=== PATIENT | male | born 1945 | race Caucasian/White ===

== ENCOUNTER 2018-06-11 23:18 | Observation (INO) ==
--- NOTE | 2018-06-11 23:44 | Emergency Department Note ---
Disposition Clinical Impression: Weakness generalized, Lethargy Disposition: Admitted As Inpatient Condition: Fair Forms: ED Satisfaction Letter Time of Disposition: 01:32 General Adult HPI - General Chief complaint: ED Altered Mental Status Stated complaint: CONFUSION Time Seen by Provider: 06/11/18 23:34 Source: patient, family, EMS Mode of arrival: EMS Limitations: physical limitation Nursing Notes Reviewed: Yes Vital Signs Reviewed: Yes - History of Present Illness Pt Subjective Complaint: Weakness Onset (ago): day(s) (3 days) Location: other (General I) Pain Severity: severe Pain Scale: 0 Consistency: constant, Worsening Improves with: nothing Worsens with: nothing Associated symptoms: Reports: confusion Treatments Prior to Arrival: none - Related Data Home Medications Medication Instructions Recorded Confirmed Atenolol [Tenormin] 25 mg PO DAILY 06/12/18 06/12/18 Baclofen [Lioresal] 10 mg PO TID 06/12/18 06/12/18 Carbidopa/Levodopa [Carbidopa-Levo 1 each PO HS 06/12/18 06/12/18 ER 25-100 Tab] Carbidopa/Levodopa [Carbidopa-Levo 1 each PO TID 06/12/18 06/12/18 ER 25-100 Tab] Cholecalciferol (Vitamin D3) 2,000 unit PO DAILY 06/12/18 06/12/18 [Vitamin D] Finasteride [Proscar] 5 mg PO DAILY 06/12/18 06/12/18 Gabapentin [Neurontin] 600 mg PO QID PRN 06/12/18 06/12/18 Lisinopril [Zestril] 20 mg PO DAILY 06/12/18 06/12/18 Meloxicam [Mobic] 7.5 mg PO BID 06/12/18 06/12/18 Omeprazole [PriLOSEC] 20 mg PO BIDAC 06/12/18 06/12/18 Primidone [Mysoline] 50 mg PO BID 06/12/18 06/12/18 Propranolol HCl 40 mg PO TID 06/12/18 06/12/18 Tamsulosin HCl [Flomax] 0.4 mg PO DAILY 06/12/18 06/12/18 Trazodone HCl 100 mg PO HS PRN 06/12/18 06/12/18 Allergies Allergy/AdvReac Type Severity Reaction Status Date / Time No Known Allergies Allergy Verified 06/11/18 23:22 All systems ED: reviewed and negative except as stated. Constitutional: Denies: fever, chills ENT ED: Denies: ear pain, throat pain, congestion Cardiovascular: Denies: chest pain, palpitations Respiratory: Denies: cough, dyspnea Gastrointestinal: Denies: abdominal pain, nausea, vomiting, diarrhea Integumentary: Denies: rash Neurological: Reports: weakness (Generalized). Denies: headache Past Medical History - Past Medical History Attestation: Yes The following information was validated with the patient. Source: patient, old records reviewed, obtained from family, nursing notes reviewed Medical history: Reports: arthritis, GERD, hypertension, other Surgical history: Reports: cholecystectomy Psychiatric history: Reports: no psych history - Social History Smoking Status: Never smoker Smokeless Tobacco Status: No Alcohol use: Reports: none Drug use: Reports: none Physical Exam - General Limitations: no limitations General appearance: alert, other (Patient is lying on the bed with his eyes closed. Very slow to answer questions.) - Head Head exam: atraumatic, normocephalic, normal inspection - Eye Eye exam: Present: normal appearance, PERRL, EOMI. Absent: scleral icterus, conjunctival injection - ENT ENT exam: normal exam, normal oropharynx, mucous membranes moist, TM's normal bilaterally, normal external ear exam - Neck Neck exam: Present: normal inspection, full ROM. Absent: meningismus, lymphadenopathy - Chest Chest inspection: Present: normal inspection, symmetric chest wall rise. Absent: tenderness - Respiratory Respiratory exam: Present: normal lung sounds bilaterally. Absent: respiratory distress, wheezes - Cardiovascular Cardiovascular exam: Present: regular rate, normal rhythm, normal heart sounds - Abdominal Exam Abdominal exam: Present: soft, Non-Tender, normal bowel sounds - Extremities Exam Extremities exam: Present: normal inspection. Absent: tenderness, pedal edema - Neurological Exam Neurological exam: Present: alert, CN II-XII intact. Absent: motor sensory deficit - Psychiatric Psychiatric exam: Present: normal affect, normal mood - Skin Skin exam: Present: warm, dry. Absent: rash Course Course Narrative: Patient presents with general weakness and confusion has been progressively worsening for the past 3 days. He is not describing any other focal complaints. Family has not noted any other focal complaints. My physical exam is basically unremarkable except that the patient is slow to answer questions and sometimes I think he does not understand the question. Otherwise is no focal neurologic findings, no indications of sepsis on exam, really nothing that explains the presentation. We will have to get a lab workup going. Disposition will be based on diagnostic results and reevaluation. - Reevaluation(s) Reevaluation #1: Labs and imaging studies all came back normal. Patient is feeling on normal conversation and following commands appropriately but he is sluggish in his responses and sluggish in his actions. He did get up and ambulate with a walker slowly but normally he does not use a walker at home. Neurologically there are no focal findings. I suspect that this is probably medication related. I am not finding any other etiology. He is not back at his baseline at this point so I think he needs to be admitted to the hospital for further evaluation and sort this out. I spoke to the hospitalist who accepted the patient for admission. The patient did have some episodes on the monitor that look like V. tach but I was standing right at the bedside talking to the patient when it happened and he actually had his hands on the lead and his Parkinson tremor was moving up and down and this would cause the abnormalities on the monitor. Otherwise there was no dysrhythmias seen during the entire ER stay. Time: 01:30 - Consultations Consultation #1: Dr. Helm, hospitalist - I discussed this with the hospitalist and he accepted patient for admission to the hospital. Time: 01:25 Vital Signs Temperature 97.9 F 06/11/18 23:22 Pulse Rate 63 06/11/18 23:22 Respiratory Rate 20 06/11/18 23:22 Blood Pressure 124/89 06/11/18 23:22 O2 Sat by Pulse Oximetry 96 06/11/18 23:22 Temperature 97.9 F 06/11/18 23:22 Pulse Rate 62 06/12/18 01:04 Respiratory Rate 20 06/12/18 00:42 Blood Pressure 102/68 06/12/18 01:04 O2 Sat by Pulse Oximetry 96 06/12/18 00:42 Oxygen Delivery Oxygen Delivery Room Air Medical Decision Making - Medical Records Medical records reviewed: Yes I reviewed the patient's medical records. - Lab Data Lab results reviewed: Yes I reviewed the patient's lab results. Result diagrams: 06/12/18 00:10 06/12/18 00:10 Lab Results 0206/11/18 06/12/18 Range/Units 23:39 23:55 00:06 WBC (4.3-11.1) K/mcL RBC (4.19-5.50) M/mcL Hgb (12.9-16.9) g/dL Hct (37.5-50.1) % MCV (83.0-100.0) fL MCH (28.0-33.3) pg MCHC (31.6-35.5) g/dL RDW (11.5-14.5) % Plt Count (140-400) K/mcL MPV (9.4-12.4) fL Immature Gran % (0-4) % Seg Neutrophils % % Lymphocytes % % Monocytes % % Eosinophils % % Basophils % % Neutrophils # (1.6-8.9) K/mcL Lymphocytes # (0.6-4.6) K/mcL Monocytes # (0.0-1.3) K/mcL Eosinophils # (0.0-0.6) K/mcL Basophils # (0.0-0.2) K/mcL Sample Site L Brach ABG pH 7.38 (7.32-7.45) pH Units ABG pCO2 49 H (35-45) mmHg ABG pO2 73 L (85-104) mmHg ABG HCO3 29 H (21-27) mEq/L ABG Total CO2 31 H (20-26) mEq/L ABG O2 Saturation 94 L (95-98) % ABG Base Excess 3 (-2 to 3) mEq/L Saad Test N/A O2 Delivery Device Room Air Sodium (136-145) mEq/L Potassium (3.5-5.1) mEq/L Chloride (98-107) mEq/L Carbon Dioxide (23-29) mEq/L BUN (8-23) mg/dL Creatinine (0.70-1.30) mg/dL Est GFR ( Amer) (> 60) Est GFR (Non-Af Amer) (> 60) BUN/Creatinine Ratio (6-26) Glucose (70-105) mg/dL POC Glucose 115 H (70-99) mg/dL Calculated Osmolality (280-300) Calcium (8.6-10.3) mg/dL Total Bilirubin (0.3-1.0) mg/dL Direct Bilirubin (0.0-0.2) mg/dL Indirect Bilirubin (0.0-1.2) mg/dL AST (13-39) Units/L ALT (7-52) Units/L Alkaline Phosphatase (34-104) Units/L Ammonia (16-53) mcmol/L Troponin I (< 0.04) ng/mL B-Natriuretic Peptide (Less than 100) pg/mL Serum Total Protein (6.4-8.9) g/dL Albumin (3.5-5.7) g/dL Globulin (2.4-3.5) g/dL Albumin/Globulin Ratio (1.1-2.2) Urine Color Yellow (Yellow) Urine Clarity Clear (Clear) Urine pH 6.0 (5.0-8.0) pH Units Ur Specific [place] 1.025 (1.010-1.025) Urine Protein Negative (Neg-Trace) mg/dL Urine Glucose (UA) Normal (Normal) mg/dL Urine Ketones Trace H (Negative) mg/dL Urine Blood Negative (Negative) Urine Nitrite Negative (Negative) Urine Bilirubin Small H (Negative) Urine Urobilinogen 2.0 H (Normal) mg/dL Ur Leukocyte Esterase Negative (Negative) Ur Culture Indicated? NO (NO) Ethyl Alcohol (Less than 10) mg/dL 06/12/18 06/12/18 06/12/18 Range/Units 00:10 00:10 00:10 WBC 8.6 (4.3-11.1) K/mcL RBC 4.36 (4.19-5.50) M/mcL Hgb 14.6 (12.9-16.9) g/dL Hct 41.8 (37.5-50.1) % MCV 95.9 (83.0-100.0) fL MCH 33.5 H (28.0-33.3) pg MCHC 34.9 (31.6-35.5) g/dL RDW 11.8 (11.5-14.5) % Plt Count 130 L (140-400) K/mcL MPV 9.5 (9.4-12.4) fL Immature Gran % 0.1 (0-4) % Seg Neutrophils % 75.2 % Lymphocytes % 14.5 % Monocytes % 7.0 % Eosinophils % 2.6 % Basophils % 0.6 % Neutrophils # 6.4 (1.6-8.9) K/mcL Lymphocytes # 1.2 (0.6-4.6) K/mcL Monocytes # 0.6 (0.0-1.3) K/mcL Eosinophils # 0.2 (0.0-0.6) K/mcL Basophils # 0.1 (0.0-0.2) K/mcL Sample Site ABG pH (7.32-7.45) pH Units ABG pCO2 (35-45) mmHg ABG pO2 (85-104) mmHg ABG HCO3 (21-27) mEq/L ABG Total CO2 (20-26) mEq/L ABG O2 Saturation (95-98) % ABG Base Excess (-2 to 3) mEq/L Saad Test O2 Delivery Device Sodium 141 (136-145) mEq/L Potassium 4.1 (3.5-5.1) mEq/L Chloride 104 (98-107) mEq/L Carbon Dioxide 29 (23-29) mEq/L BUN 13 (8-23) mg/dL Creatinine 0.83 (0.70-1.30) mg/dL Est GFR ( Amer) > 60 (> 60) Est GFR (Non-Af Amer) > 60 (> 60) BUN/Creatinine Ratio 16 (6-26) Glucose 120 H (70-105) mg/dL POC Glucose (70-99) mg/dL Calculated Osmolality 293 (280-300) Calcium 9.3 (8.6-10.3) mg/dL Total Bilirubin 0.4 (0.3-1.0) mg/dL Direct Bilirubin 0.1 (0.0-0.2) mg/dL Indirect Bilirubin 0.3 (0.0-1.2) mg/dL AST 10 L (13-39) Units/L ALT 7 (7-52) Units/L Alkaline Phosphatase 57 (34-104) Units/L Ammonia 44 (16-53) mcmol/L Troponin I < 0.03 (< 0.04) ng/mL B-Natriuretic Peptide (Less than 100) pg/mL Serum Total Protein 6.6 (6.4-8.9) g/dL Albumin 4.2 (3.5-5.7) g/dL Globulin 2.4 (2.4-3.5) g/dL Albumin/Globulin Ratio 1.8 (1.1-2.2) Urine Color (Yellow) Urine Clarity (Clear) Urine pH (5.0-8.0) pH Units Ur Specific [place] (1.010-1.025) Urine Protein (Neg-Trace) mg/dL Urine Glucose (UA) (Normal) mg/dL Urine Ketones (Negative) mg/dL Urine Blood (Negative) Urine Nitrite (Negative) Urine Bilirubin (Negative) Urine Urobilinogen (Normal) mg/dL Ur Leukocyte Esterase (Negative) Ur Culture Indicated? (NO) Ethyl Alcohol < 10 (Less than 10) mg/dL 06/12/18 Range/Units 00:10 WBC (4.3-11.1) K/mcL RBC (4.19-5.50) M/mcL Hgb (12.9-16.9) g/dL Hct (37.5-50.1) % MCV (83.0-100.0) fL MCH (28.0-33.3) pg MCHC (31.6-35.5) g/dL RDW (11.5-14.5) % Plt Count (140-400) K/mcL MPV (9.4-12.4) fL Immature Gran % (0-4) % Seg Neutrophils % % Lymphocytes % % Monocytes % % Eosinophils % % Basophils % % Neutrophils # (1.6-8.9) K/mcL Lymphocytes # (0.6-4.6) K/mcL Monocytes # (0.0-1.3) K/mcL Eosinophils # (0.0-0.6) K/mcL Basophils # (0.0-0.2) K/mcL Sample Site ABG pH (7.32-7.45) pH Units ABG pCO2 (35-45) mmHg ABG pO2 (85-104) mmHg ABG HCO3 (21-27) mEq/L ABG Total CO2 (20-26) mEq/L ABG O2 Saturation (95-98) % ABG Base Excess (-2 to 3) mEq/L Saad Test O2 Delivery Device Sodium (136-145) mEq/L Potassium (3.5-5.1) mEq/L Chloride (98-107) mEq/L Carbon Dioxide (23-29) mEq/L BUN (8-23) mg/dL Creatinine (0.70-1.30) mg/dL Est GFR ( Amer) (> 60) Est GFR (Non-Af Amer) (> 60) BUN/Creatinine Ratio (6-26) Glucose (70-105) mg/dL POC Glucose (70-99) mg/dL Calculated Osmolality (280-300) Calcium (8.6-10.3) mg/dL Total Bilirubin (0.3-1.0) mg/dL Direct Bilirubin (0.0-0.2) mg/dL Indirect Bilirubin (0.0-1.2) mg/dL AST (13-39) Units/L ALT (7-52) Units/L Alkaline Phosphatase (34-104) Units/L Ammonia (16-53) mcmol/L Troponin I (< 0.04) ng/mL B-Natriuretic Peptide 73 (Less than 100) pg/mL Serum Total Protein (6.4-8.9) g/dL Albumin (3.5-5.7) g/dL Globulin (2.4-3.5) g/dL Albumin/Globulin Ratio (1.1-2.2) Urine Color (Yellow) Urine Clarity (Clear) Urine pH (5.0-8.0) pH Units Ur Specific [place] (1.010-1.025) Urine Protein (Neg-Trace) mg/dL Urine Glucose (UA) (Normal) mg/dL Urine Ketones (Negative) mg/dL Urine Blood (Negative) Urine Nitrite (Negative) Urine Bilirubin (Negative) Urine Urobilinogen (Normal) mg/dL Ur Leukocyte Esterase (Negative) Ur Culture Indicated? (NO) Ethyl Alcohol (Less than 10) mg/dL - Radiology Data Radiology results reviewed: Yes I reviewed the patient's radiology results. - EKG Data EKG #1 EKG attestation: Yes I reviewed and interpreted this EKG. EKG results narrative: Twelve-lead EKG performed at 20 3:29 PM. Ordered, reviewed and interpreted by ED physician shows sinus rhythm at a rate of 61. Left axis deviation and left anterior hemiblock. Good hour progression across precordium. No obvious acute ischemic changes. Intervals are within normal limits.
[2018-06-12 00:02] LABS: Bilirubin,Urine Small (Negative); Blood,Urine Negative (Negative); Clarity,Urine Clear (Clear); Color,Urine Yellow (Yellow); Glucose,Urine (UA) Normal (Normal); Ketones,Urine Trace mg/dL (Negative); Leukocyte Esterase,Urine Negative (Negative); Nitrite,Urine Negative (Negative); Protein,Urine Negative (Neg-Trace); Specific Gravity,Urine 1.025 (1.010-1.025)
[2018-06-12 00:09] LABS: ABG Base Excess 3 mEq/L (-2 to 3); ABG HCO3 29 mEq/L (21-27); ABG Oxygen Saturation 94 % (95-98); ABG PCO2 49 mmHg (35-45); ABG PH 7.38 pH Units (7.32-7.45); ABG PO2 73 mmHg (85-104); ABG TCO2 31 mEq/L (20-26)
[2018-06-12 00:18] LABS: Basophils # 0.1 K/mcL (0.0-0.2); Basophils % 0.6 %; Eosinophils # 0.2 K/mcL (0.0-0.6); Eosinophils % 2.6 %; Hematocrit 41.8 % (37.5-50.1); Hemoglobin 14.6 g/dL (12.9-16.9); Immature Granulocytes % 0.1 % (0-4); Lymphocytes # 1.2 K/mcL (0.6-4.6); Lymphocytes % 14.5 %; Mean Corpuscular HGB Conc 34.9 g/dL (31.6-35.5); Mean Corpuscular Hemoglobin 33.5 pg (28.0-33.3); Mean Corpuscular Volume 95.9 fL (83.0-100.0); Mean Platelet Volume 9.5 fL (9.4-12.4); Monocytes # 0.6 K/mcL (0.0-1.3); Neutrophils # 6.4 K/mcL (1.6-8.9); Platelet Count 130 K/mcL (140-400); Red Blood Count 4.36 M/mcL (4.19-5.50); Red Cell Distribution Width 11.8 % (11.5-14.5); Segmented Neutrophils % 75.2 %
[2018-06-12 00:38] LABS: Alanine Aminotransferase 7 Units/L (7-52); Albumin 4.2 g/dL (3.5-5.7); Albumin/Globulin Ratio 1.8 (1.1-2.2); Alkaline Phosphatase 57 Units/L (34-104); Aspartate Amino Transferase 10 Units/L (13-39); BUN/Creatinine Ratio 16 (6-26); Bilirubin,Direct 0.1 mg/dL (0.0-0.2); Bilirubin,Indirect 0.3 mg/dL (0.0-1.2); Bilirubin,Total 0.4 mg/dL (0.3-1.0); Blood Urea Nitrogen 13 mg/dL (8-23); Calcium 9.3 mg/dL (8.6-10.3); Carbon Dioxide 29 mEq/L (23-29); Chloride 104 mEq/L (98-107); Ethanol < 10 mg/dL (Less than 10); Globulin 2.4 g/dL (2.4-3.5); Glucose 120 mg/dL (70-105); Osmolality,Calculated 293 (280-300); Potassium 4.1 mEq/L (3.5-5.1); Sodium 141 mEq/L (136-145); Total Protein 6.6 g/dL (6.4-8.9); Troponin I < 0.03 ng/mL (< 0.04); eGFR For Non-African Americans > 60 (> 60)
[2018-06-12] MEDS ORDERED: 0.9 % Sodium Chloride 1,000 ML IVC SCH ×2 (01:45→06:00)
[2018-06-12] MEDS ORDERED: Naloxone 0.4 MG/ML INJ IVP PRN (06:00)
[2018-06-12] MEDS: Carbidopa/Levodopa 25/100 TABLET PO SCH ×3 (11:20→17:09)
[2018-06-12] MEDS: Lisinopril 20 MG TABLET PO SCH (11:23)
--- NOTE | 2018-06-12 14:45 | Internal Med History&Physical ---
Date of Encounter: 06/12/18 Time of Encounter: 14:10 Assessment and Plan (1) Syncope Current visit: Yes Status: Acute Etiology determined. He was placed on telemetry through emergency room. Baseline EKG was unremarkable. Repeat cardiac enzymes were ordered. Qualifiers: Syncope type: unspecified Qualified Code(s): R55 - Syncope and collapse (2) Weakness generalized Current visit: Yes Status: Acute As above (3) Hypertension Current visit: Yes Status: Chronic Continue lisinopril Qualifiers: Hypertension type: essential hypertension Qualified Code(s): I10 - Essential (primary) hypertension (4) Parkinsons disease Current visit: Yes Status: Acute Continue Sinemet Internal Medicine - H&P: HPI Chief complaint: Weakness and lethargy Admitted From: Emergency Dept Plans for Post Hospital Care: Home History of present illness: Mr. Blackwood is a 72 year old male who came to emergency room after he had onset of weakness while sitting in a chair. His reports he had complete loss of consciousness for a few seconds and upon regaining consciousness seemed to be lethargic. There was no seizure activity noted. The loss and regain of consciousness continued repeatedly over the next few hours. The squad was called and he was brought to emergency room and evaluated. He was admitted to [facility] floor for ongoing care needs. He still feels weak but has had no further syncopal or near syncopal episodes. He denies previous similar episodes. He denies pain or dyspnea at the time of the event yesterday. He has not had syncopal or near syncopal episodes since the of his daughter many decades ago. His neurologic history is pertinent for diagnoses of Parkinson's disease and essential tremor. He has not had large distribution strokes or seizures. Past Med Surg Social Fam HX - Past Medical History Medical history: arthritis, GERD, hypertension, other Additional medical history: PARKINSON'S, USES WALKER AND CANE FOR ASSIST, DDD, CHRONIC PAIN ISSUES, RLS, Psychiatric history: no psych history - Past Surgical History Surgical History: cholecystectomy Additional surgical history: RT KNEE SURG 1963 (WEARS KNEE BRACE) - Social History Smoking Status: Never smoker Smokeless Tobacco Status: No Alcohol use: none Drug use: none Internal Medicine - H&P: Meds Baclofen [Lioresal] 10 mg PO TID 06/12/18 [History] Carbidopa/Levodopa 25/100 [Sinemet 25/100] 1 each PO TID 06/12/18 [History] Carbidopa/Levodopa [Carbidopa-Levo ER 25-100 Tab] 1 each PO HS 06/12/18 [History] Cholecalciferol (Vitamin D3) [Vitamin D] 2,000 unit PO DAILY 06/12/18 [History] Finasteride [Proscar] 5 mg PO DAILY 06/12/18 [History] Gabapentin [Neurontin] 600 mg PO QID PRN 06/12/18 [History] Lisinopril [Zestril] 20 mg PO DAILY 06/12/18 [History] Meloxicam [Mobic] 7.5 mg PO BID 06/12/18 [History] Omeprazole [PriLOSEC] 20 mg PO BIDAC 06/12/18 [History] Primidone [Mysoline] 50 mg PO BID 06/12/18 [History] Propranolol HCl 40 mg PO TID 06/12/18 [History] Tamsulosin HCl [Flomax] 0.4 mg PO DAILY 06/12/18 [History] Trazodone HCl 100 mg PO HS PRN 06/12/18 [History] Allergy/AdvReac Type Severity Reaction Status Date / Time No Known Allergies Allergy Verified 06/11/18 23:22 All Systems PM: A 10-system review of systems was performed and is negative for pertinent findings except as documented above in the HPI. Review of systems: Gen.: He states his weight has been stable for the past year Cardiovascular: He has history of hypertension but denies LA heart failure angina DVT or pulmonary embolus Respiratory: He is a lifelong nonsmoker. He denies chronic lung disease does not use home oxygen. He has PERCY and has CPAP but does not use it regularly. GI: He has had cholecystectomy. He denies disorders of his liver or exocrine pancreas : He has BPH and is on Proscar. He denies other kidney bladder prostate disorders. Neurologic: As per history of present illness Endocrine: He denies diabetes thyroid disease or hyperlipidemia Hematology/oncology: He denies blood disorders cancers or anemia Psychiatric: He denies anxiety depression or other mental health issues [place] skeletal: He has DJD but denies gout or other bone joint or muscle disorders. - Constitutional Vitals: Temp Pulse Resp BP Pulse Ox 98.3 F 63 17 126/69 95 06/12/18 10:00 06/12/18 10:00 06/12/18 10:00 06/12/18 10:00 06/12/18 10:00 Exam: Gen.: He is a well-developed well-nourished male lying in bed who appears in no acute distress HEENT: Head is atraumatic and normocephalic. Eyes: EOMI. There is no scleral icterus. Mouth: Mucosa is moist. Neck: Supple and nontender. There is no thyromegaly or adenopathy noted Heart: Regular without murmurs gallops or ectopics Lungs: No wheezes or crackles are heard. Abdomen: Soft and nontender. No masses or guarding are noted. Extremities: There is no cyanosis edema or clubbing noted. Dorsalis pedis and posttibial pulses are trace palpable bilaterally. Neurologic: Mental status: He is talkative and a good historian. Cranial nerves: Smile is symmetric. Forehead wrinkles bilaterally. Tongue protrudes midline. EOMI. Motor: He has tremor at rest consistent with Parkinson's disease involving his arms and jaw. Cerebellar: Finger to nose is intact bilaterally. Skin: Warm and dry Internal Med - H&P Results - Labs CBC & Chem 7: 06/12/18 00:10 06/12/18 00:10 Labs: Short CBC 06/12/18 Range/Units 00:10 WBC 8.6 (4.3-11.1) K/mcL Hgb 14.6 (12.9-16.9) g/dL Hct 41.8 (37.5-50.1) % Plt Count 130 L (140-400) K/mcL Neutrophils # 6.4 (1.6-8.9) K/mcL BMP 06/12/18 00:10 Sodium 141 Potassium 4.1 Chloride 104 Carbon Dioxide 29 BUN 13 Creatinine 0.83 Glucose 120 H Calcium 9.3 Cardiac Enzymes 06/12/18 06/12/18 Range/Units 00:10 07:37 Troponin I < 0.03 < 0.03 (< 0.04) ng/mL Liver Function 06/12/18 Range/Units 00:10 Total Bilirubin 0.4 (0.3-1.0) mg/dL Direct Bilirubin 0.1 (0.0-0.2) mg/dL AST 10 L (13-39) Units/L ALT 7 (7-52) Units/L Alkaline Phosphatase 57 (34-104) Units/L Albumin 4.2 (3.5-5.7) g/dL Urine 06/11/18 Range/Units 23:55 Urine Color Yellow (Yellow) Urine Clarity Clear (Clear) Urine pH 6.0 (5.0-8.0) pH Units Ur Specific [place] 1.025 (1.010-1.025) Urine Protein Negative (Neg-Trace) mg/dL Urine Glucose (UA) Normal (Normal) mg/dL - ABG Interpretation ABG results: 06/12/18 00:06 ABG pH 7.38 ABG pCO2 49 H ABG pO2 73 L ABG HCO3 29 H ABG Total CO2 31 H ABG O2 Saturation 94 L ABG Base Excess 3 - Impressions ITS Impressions Chest X-Ray 06/11/18 23:40 IMPRESSION: 1. No active pulmonary disease. D/ / Jake Sheth MD / Jake Sheth MD Interpreting Provider: Jake Sheth MD Head CT 06/12/18 23:40 IMPRESSION: No acute intracranial abnormality. Mild chronic small vessel ischemic disease. D/ / Keith Jorge / Keith Jorge Interpreting Provider: Keith Jorge
--- NOTE | 2018-06-12 14:59 | Discharge Summary ---
Orders not resulted at time of discharge: Pending orders 06/11/18 23:41 Culture,Blood [BC] Stat 06/12/18 12:00 Troponin I Q6H 06/12/18 18:00 Troponin I Q6H Date of Encounter: 06/12/18 Time of Encounter: 14:10 - Discharge Diagnosis (1) Syncope Priority: Primary Status: Acute Qualifiers: Syncope type: unspecified Qualified Code(s): R55 - Syncope and collapse (2) Weakness generalized Priority: Secondary Status: Acute (3) Hypertension Priority: Secondary Status: Chronic Qualifiers: Hypertension type: essential hypertension Qualified Code(s): I10 - Essential (primary) hypertension (4) Parkinsons disease Priority: Secondary Status: Acute Hospital course: Mr. Blackwood is a 72 year old male who came to emergency room after he had onset of weakness while sitting in a chair. His reports he had complete loss of consciousness for a few seconds and upon regaining consciousness seemed to be lethargic. There was no seizure activity noted. The loss and regain of consciousness continued repeatedly over the next few hours. The squad was called and he was brought to emergency room and evaluated. He was admitted to [facility] for ongoing care needs. Initial orders were written by emergency room physician. I saw him on June 12 and performed a history physical and discharge. Repeat cardiac enzymes showed no myocardial damage. He had no further episodes of syncope or near- syncope during his hospital stay. The etiology of his syncope at home was not determined with certainty. When I saw him he felt slightly weak but otherwise back to his baseline. He denied pain or dyspnea and felt stable for discharge home. He will follow with his PCP at [facility] within 1 week. - Time Spent with Patient Total time spent providing and/or coordinating discharge services: - Discharge Medications Home Medications: Baclofen [Lioresal] 10 mg PO TID 06/12/18 [History] Carbidopa/Levodopa 25/100 [Sinemet 25/100] 1 each PO TID 06/12/18 [History] Carbidopa/Levodopa [Carbidopa-Levo ER 25-100 Tab] 1 each PO HS 06/12/18 [History] Cholecalciferol (Vitamin D3) [Vitamin D3] 2,000 unit PO DAILY 06/12/18 [History] Finasteride [Proscar] 5 mg PO DAILY 06/12/18 [History] Gabapentin [Neurontin] 600 mg PO QID PRN 06/12/18 [History] Lisinopril [Zestril] 20 mg PO DAILY 06/12/18 [History] Meloxicam [Mobic] 7.5 mg PO BID 06/12/18 [History] Omeprazole [PriLOSEC] 20 mg PO BIDAC 06/12/18 [History] Primidone [Mysoline] 50 mg PO BID 06/12/18 [History] Propranolol HCl 40 mg PO TID 06/12/18 [History] Tamsulosin HCl [Flomax] 0.4 mg PO DAILY 06/12/18 [History] Trazodone HCl 100 mg PO HS PRN 06/12/18 [History] Allergies/Adverse Reactions: Allergy/AdvReac Type Severity Reaction Status Date / Time No Known Allergies Allergy Verified 06/11/18 23:22 Date of admission: 06/12/18 01:42 Primary care physician: [facility] Consults: 06/12/18 06:01 Consult to Transfer And Pumphouse Operator Chief [CONS] Routine Reason for Consult: Power of atternoy papers for the family - Constitutional Vitals: Temp Pulse Resp BP Pulse Ox 98.3 F 63 17 126/69 95 06/12/18 10:00 06/12/18 10:00 06/12/18 10:00 06/12/18 10:00 06/12/18 10:00 - Patient Status Disposition: Home, Self-Care Condition: Fair - Discharge Instructions Follow Up With: [facility] [Primary Care Provider[facility] - 1 week - Diet and Activity Activity: resume usual activities as tolerated Diet: advance to your usual diet
[2018-06-12] MEDS ORDERED: Carbidopa/Levodopa ER 50/200 TABLET PO SCH (21:00)
[2018-06-12 21:16] LABS: Acinetobacter baumannii by PCR Not Detected (Not Detect); Candida albicans by PCR Not Detected (Not Detect); Candida glabrata by PCR Not Detected (Not Detect); Candida krusei by PCR Not Detected (Not Detect); Candida parapsilosis by PCR Not Detected (Not Detect); Candida tropicalis by PCR Not Detected (Not Detect); Enterobacter cloacae Cmplx PCR Not Detected (Not Detect); Enterobacteriaceae by PCR Not Detected (Not Detect); Enterococcus by PCR Not Detected (Not Detect); Escherichia coli by PCR Not Detected (Not Detect); Klebsiella oxytoca by PCR Not Detected (Not Detect); Klebsiella pneumoniae by PCR Not Detected (Not Detect); Proteus by PCR Not Detected (Not Detect); Pseudomonas aeruginosa by PCR Not Detected (Not Detect); Serratia marcescens by PCR Not Detected (Not Detect); Staphylococcus aureus by PCR Not Detected (Not Detect); Staphylococcus by PCR Not Detected (Not Detect); Streptococcus agalactiae(B)PCR Not Detected (Not Detect); Streptococcus by PCR DETECTED (Not Detect); Streptococcus pneumoniae PCR Not Detected (Not Detect); Streptococcus pyogenes (A) PCR Not Detected (Not Detect); blaKPC Carbapenem-Resist Gene Not Detected (Not Detect); vanA/B Vancomycin-Resist Genes Not Detected (Not Detect)
[2018-06-12] MEDS: 0.9 % Sodium Chloride 1,000 ML IVC SCH ×2 (21:27→21:28)
[2018-06-12] MEDS: cephALEXin 500 MG CAPSULE PO SCH (21:34)
[2018-06-13] MEDS: Carbidopa/Levodopa 25/100 TABLET PO SCH ×2 (06:47→11:54)
[2018-06-13] MEDS: Lisinopril 20 MG TABLET PO SCH (09:05)
[2018-06-13] MEDS: cephALEXin 500 MG CAPSULE PO SCH ×2 (09:05→15:48)
[2018-06-13] MEDS ORDERED: Loratadine 10 MG TABLET PO PRN (12:22)
[2018-06-13 14:05] VITALS: BP 144/64
--- NOTE | 2018-06-13 16:13 | Physician Discharge Referral ---
Home Health/Hosp Referral Info Transfer to: Home Health Attending Provider: Volodymyr Provider in Charge Post Discharge[facility] - Diagnosis (1) Syncope Priority: Primary Status: Acute (2) Weakness generalized Priority: Secondary Status: Acute (3) Hypertension Priority: Secondary Status: Chronic (4) Parkinsons disease Priority: Secondary Status: Acute (5) Bacteremia due to Streptococcus Status: Acute - Respiratory Orders Smoking Cessation: Smoking cessation has been advised. For more information, call the [place] Tobacco Quit Line at 2-278-PXBI-NOW. - Diet/Nutrition Diet/Nutrition Orders: Regular - Activity Activity Orders: Walker - Services Needed Following services are medically necessary services: Nursing, Home Health Aide, Physical Therapy, Occupational Therapy - Transfer Medications Prescriptions: cephALEXin [Keflex] 500 mg PO Q8H #15 capsule Lactobacillus [Culturelle] 1 each PO BID #10 cap.sprink Home Medications: Baclofen [Lioresal] 10 mg PO TID 06/12/18 [History] Carbidopa/Levodopa 25/100 [Sinemet 25/100] 1 each PO TID 06/12/18 [History] Carbidopa/Levodopa [Carbidopa-Levo ER 25-100 Tab] 1 each PO HS 06/12/18 [Histor y] Cholecalciferol (Vitamin D3) [Vitamin D3] 2,000 unit PO DAILY 06/12/18 [History] Finasteride [Proscar] 5 mg PO DAILY 06/12/18 [History] Gabapentin [Neurontin] 600 mg PO QID PRN 06/12/18 [History] Lisinopril [Zestril] 20 mg PO DAILY 06/12/18 [History] Meloxicam [Mobic] 7.5 mg PO BID 06/12/18 [History] Omeprazole [PriLOSEC] 20 mg PO BIDAC 06/12/18 [History] Primidone [Mysoline] 50 mg PO BID 06/12/18 [History] Propranolol HCl 40 mg PO TID 06/12/18 [History] Tamsulosin HCl [Flomax] 0.4 mg PO DAILY 06/12/18 [History] Trazodone HCl 100 mg PO HS PRN 06/12/18 [History] Lactobacillus [Culturelle] 1 each PO BID #10 cap.sprink 06/13/18 [Rx] cephALEXin [Keflex] 500 mg PO Q8H #15 capsule 06/13/18 [Rx] Allergies/Adverse Reactions: Allergy/AdvReac Type Severity Reaction Status Date / Time No Known Allergies Allergy Verified 06/11/18 23:22 Certification: Further, I certify that my clinical findings support that this patient is homebound (i.e. absences from home require considerable and taxing effort and are for medical reasons or tenriism services or infrequently or short duration when for other reasons) because: Homebound Reason: Leaving home requires considerable and taxing effort due to condition (Parkinson's disease) Attestation: My signature below is to certify that this patient is under my care and that I, or nurse practitioner, or a physician's mechanic assistant working with me, has a [id number] encounter with this patient.
--- NOTE | 2018-06-13 20:42 | Electrocardiograph Report ---
[place] [id number] Test Date: 2018-06-11 Pat Name: Silvino [place] Department: EDP-14 Room: [facility] Gender: M [employer]: : 1945 Requested By: Zach Kaur Order Number: [id number] Reading MD: Oneida Avila Measurements Intervals [place] Rate: 61 P: 60 CT: 184 QRS: -57 QRSD: 113 T: 24 QT: 433 QTc: 437 Interpretive Statements Sinus rhythm Left anterior fascicular block Abnormal R-wave progression, late transition Nonspecific ST-T abnormalities Electronically Signed On 06-13-2018 20:40:59 EST by Oneida Avila
== END 2018-06-13 17:00 | disposition home or self-care (01) ==
LOC: EMEROOPIK 23:18 → INPPIK 23:18
PROVIDERS: ADMIT Internal Medicine; ATTEND Internal Medicine